=== PATIENT | female | born 1965 | race Caucasian/White ===

== ENCOUNTER 2017-11-12 16:06 | Outpatient (CLI) | payer OTHER | END 2017-11-12 16:07 | disposition home or self-care (01) | LOC: BICMAMMO 16:06 | PROVIDERS: ATTEND Obstetrics & Gynecology | DX: Z12.31 Encounter for screening mammogram for malignant neoplasm of breast (principal); Z80.3 Family history of malignant neoplasm of breast | CPT/HCPCS: 77063; 77067 ==

== ENCOUNTER 2018-11-18 15:36 | Outpatient (CLI) | payer OTHER ==
--- NOTE | 2018-12-07 15:52 | MMO ---
Bilateral MAMMO Bilat Screen [facility]. CLINICAL HISTORY: Patient is 53 years old and is seen for screening. The patient has the following family history of breast cancer: mother, at age 67; sister, at age 49; maternal aunt, at age 65 and maternal aunt, at age 65. The patient has no personal history of cancer. VIEWS: The views performed were: bilateral craniocaudal with tomosynthesis; bilateral mediolateral oblique with tomosynthesis; and left exaggerated craniocaudal. FILMS COMPARED: The present examination has been compared to prior imaging studies performed at [facility] on 11/06/2016 and 11/12/2017, and at [facility] on 09/03/2011, 09/19/2012, 09/29/2012, 10/16/2013, 12/12/2014, 12/17/2015 and 12/23/2015. MAMMOGRAM FINDINGS: The breasts are heterogeneously dense, which could obscure a lesion on mammography. Finding 1: There is a stable asymmetry seen in the inner region of the right breast. Finding 2: There are benign appearing calcifications seen in both breasts. There are no suspicious masses, suspicious calcifications, or new areas of architectural distortion. IMPRESSION: THERE IS NO MAMMOGRAPHIC EVIDENCE OF MALIGNANCY. A ROUTINE FOLLOW-UP MAMMOGRAM IN 1 YEAR IS RECOMMENDED. THE RESULTS OF THIS EXAM WERE SENT TO THE PATIENT. ACR BI-RADS Category 2 - Benign finding MAMMOGRAPHY NOTE: 1. A negative mammogram report should not delay a biopsy if a dominant of clinically suspicious mass is present. 2. Approximately 10% to 15% of breast cancers are not detected by mammography. 3. Adenosis and dense breasts may obscure an underlying neoplasm.
== END 2018-11-18 15:37 | disposition home or self-care (01) ==
LOC: BICMAMMO 15:36
PROVIDERS: ATTEND Obstetrics & Gynecology
DX: Z12.31 Encounter for screening mammogram for malignant neoplasm of breast (principal); Z80.3 Family history of malignant neoplasm of breast
CPT/HCPCS: 77063; 77067

== ENCOUNTER 2019-12-28 15:54 | Outpatient (CLI) | payer OTHER ==
--- NOTE | 2019-12-29 08:09 | MMO ---
Bilateral MAMMO Bilat Screen [facility]. CLINICAL HISTORY: Patient is 54 years old and is seen for screening. The patient has the following family history of breast cancer: mother, at age 67; sister, at age 49; maternal aunt, at age 65 and maternal aunt, at age 65. The patient has no personal history of cancer. VIEWS: The views performed were: bilateral craniocaudal with tomosynthesis and bilateral mediolateral oblique with tomosynthesis. FILMS COMPARED: The present examination has been compared to prior imaging studies performed at [facility] on 11/06/2016, 11/12/2017 and 11/18/2018. This study has been interpreted with the assistance of computer-aided detection. MAMMOGRAM FINDINGS: The breasts are heterogeneously dense, which could obscure a lesion on mammography. There are benign appearing calcifications seen in both breasts. There are no suspicious masses, suspicious calcifications, or new areas of architectural distortion. IMPRESSION: THERE IS NO MAMMOGRAPHIC EVIDENCE OF MALIGNANCY. A ROUTINE FOLLOW-UP MAMMOGRAM IN 1 YEAR IS RECOMMENDED. THE RESULTS OF THIS EXAM WERE SENT TO THE PATIENT. ACR BI-RADS Category 2 - Benign finding MAMMOGRAPHY NOTE: 1. A negative mammogram report should not delay a biopsy if a dominant of clinically suspicious mass is present. 2. Approximately 10% to 15% of breast cancers are not detected by mammography. 3. Adenosis and dense breasts may obscure an underlying neoplasm. Reported by: MICHAEL TOMLIN MD Electonically Signed: [id number]
== END 2019-12-28 15:55 | disposition home or self-care (01) ==
LOC: BICMAMMO 15:54
PROVIDERS: ATTEND Obstetrics & Gynecology
DX: Z12.31 Encounter for screening mammogram for malignant neoplasm of breast (principal); Z80.3 Family history of malignant neoplasm of breast
CPT/HCPCS: 77063; 77067

== ENCOUNTER 2020-11-15 18:03 | Outpatient (CLI) | payer BC ==
[2020-11-16 03:55] LABS: SARS-CoV-2 PCR by NAA Not Detected (NotDetected)
== END 2020-11-15 18:04 | disposition home or self-care (01) ==
LOC: LABBT 18:03
PROVIDERS: ATTEND Neurological Surgery
DX: M54.12 Radiculopathy, cervical region (principal); Z20.822 Contact with and (suspected) exposure to COVID-19
CPT/HCPCS: 87635; U0003; U0005

== ENCOUNTER 2020-11-20 05:49 | Day surgery (SDC) | payer BC ==
[2020-11-19 09:34] VITALS: BMI 25.7
[2020-11-20] MEDS ORDERED: Thrombin 5000 UNITS/5 ML VIAL ONE (06:09)
[2020-11-20] MEDS ORDERED: Fentanyl 100 MCG/2 ML VIAL ONE ×3 (06:34→08:57)
[2020-11-20] MEDS ORDERED: Midazolam HCl 2 mg/2 ml Vial ONE (06:40)
[2020-11-20] MEDS ORDERED: Scopolamine 1.5 mg/72 hour Patch ONE (06:40)
[2020-11-20] MEDS ORDERED: Famotidine/PF 20 mg/2ml Vial ONE (06:44)
[2020-11-20 06:52] LABS: Hemoglobin 13.1 g/dL (12.0-16.0); Mean Corpuscular Hemoglobin 31.3 pg (27.0-31.0); Platelet Count 221 thou/uL (130-400); RBC Distribution Width 12.4 % (11.5-14.5); Red Blood Cell (RBC) Count 4.17 mill/uL (4.20-5.40); White Blood Cell (WBC) Count 6.3 thou/uL (4.8-10.8)
[2020-11-20] MEDS ORDERED: PROPOFOL 200 MG/20 ML VIAL ONE (07:03)
[2020-11-20] MEDS ORDERED: ePHEDrine 50 MG/ML VIAL ONE (07:03)
[2020-11-20] MEDS ORDERED: Ondansetron PF 4 MG/2 ML Vial ONE (07:03)
[2020-11-20] MEDS ORDERED: Rocuronium Bromide 10 MG/ML (10ML VIAL) ONE (07:03)
[2020-11-20] MEDS ORDERED: Lidocaine 1% PF 5 ML VIAL ONE (07:03)
[2020-11-20] MEDS ORDERED: Metoclopramide HCl 10 MG/2 ML VIAL ONE (07:03)
[2020-11-20] MEDS ORDERED: Glycopyrrolate 0.2 MG/ML 5 ML SYRINGE ONE (07:03)
[2020-11-20] MEDS ORDERED: Dexamethasone 20 MG/5 ML VIAL ONE (07:03)
[2020-11-20] MEDS ORDERED: Ketorolac Tromethamine 30 MG/ML VIAL ONE (07:03)
[2020-11-20] MEDS ORDERED: Morphine 2 MG/ML VIAL ONE (09:29)
[2020-11-20] MEDS ORDERED: HYDROcodone/Acetaminophen 5/325 mg Tablet ONE (10:19)
== END 2020-11-20 12:00 | disposition home or self-care (01) ==
LOC: SDC 05:49
PROVIDERS: ATTEND Neurological Surgery
PROC: 0RT30ZZ Resection of Cervical Vertebral Disc, Open Approach (ICD-10-PCS; principal; 2020-11-20)
PROC: 0RG20A0 Fusion of 2 or more Cervical Vertebral Joints with Interbody Fusion Device, Anterior Approach, Anterior Column, Open Approach (ICD-10-PCS; principal; 2020-11-20)
DX: M54.12 Radiculopathy, cervical region (principal); M25.78 Osteophyte, vertebrae; Z79.899 Other long term (current) drug therapy; Z88.0 Allergy status to penicillin; Z88.1 Allergy status to other antibiotic agents; Z88.5 Allergy status to narcotic agent
CPT/HCPCS: 36415; 76000; 85027; C1713; C1776; J0690; J1100; J1885; J2250; J2270; J2405; J2704; J2765; J3010; J3490; S0028

== ENCOUNTER 2021-01-01 12:47 | Outpatient (CLI) | payer BC | END 2021-01-01 12:48 | disposition home or self-care (01) | LOC: TBSIIMAG 12:47 | PROVIDERS: ATTEND Neurological Surgery | DX: M47.26 Other spondylosis with radiculopathy, lumbar region (principal) | CPT/HCPCS: 72148 ==

== ENCOUNTER 2022-06-23 01:16 | Inpatient (IN) | payer BC ==
[2022-06-23 02:03] VITALS: BMI 25.6
[2022-06-23] MEDS ORDERED: Morphine 4 MG/ML VIAL SLOW IVP PRN (02:52)
[2022-06-23] MEDS ORDERED: Ondansetron PF 4 MG/2 ML Vial IVP PRN (02:53)
[2022-06-23] MEDS ORDERED: Acetaminophen 650 MG Suppository PR PRN (06:27)
[2022-06-23] MEDS ORDERED: Sodium Chloride 0.9% 1,000 ML IV SCH (06:30)
[2022-06-23] MEDS ORDERED: Ketorolac Tromethamine 30 MG/ML VIAL IVP SCH ×2 (06:30→11:15)
[2022-06-23 06:51] LABS: #Eosinphils 0.1 thou/uL (0.0-0.7); #Lymphocytes 2.4 thou/uL (1.20-3.40); #Monocytes 1.1 thou/uL (0.11-0.59); #Neutrophils 8.9 thou/uL (1.40-6.50); %Basophils 0.2 % (0.0-1.0); %Eosinophils 0.9 % (0.0-10.0); %Lymphocytes 19.4 % (21.0-51.0); %Monocytes 8.9 % (0.0-10.0); %Neutrophils 70.6 % (42.0-75.0); Hemoglobin 13.1 g/dL (12.0-16.0); Mean Corpuscular Hemoglobin 30.7 pg (27.0-31.0); Mean Corpuscular Volume 95.8 fl (78.0-98.0); Mean Platelet Volume 8.2 fL (7.4-10.4); Platelet Count 227 thou/uL (130-400); Red Blood Cell (RBC) Count 4.26 mill/uL (4.20-5.40); White Blood Cell (WBC) Count 12.6 thou/uL (4.8-10.8)
[2022-06-23 07:03] LABS: Anion Gap 13 mmol/L (10-20); BUN (Urea Nitrogen) 10 mg/dL (9.8-20.1); Calc. Creatinine Clearance 86 mL/min (70-130); Calcium 8.8 mg/dL (7.8-10.44); Carbon Dioxide 24 mmol/L (22-29); Chloride 107 mmol/L (98-107); Estimated GFR 83; Glucose 80 mg/dL (70-105); Potassium 3.8 mmol/L (3.5-5.1); Sodium 140 mmol/L (136-145)
[2022-06-23 07:55] LABS: Phosphorus 3.8 mg/dL (2.3-4.7)
[2022-06-23 07:56] LABS: Iron 25 ug/dL (50-170); Iron Binding Capacity, Total 188 mcg/dL (265-497)
[2022-06-23] MEDS: Pantoprazole 40 MG VIAL IVP SCH ×2 (08:18→19:58)
[2022-06-23] MEDS: D5 1/2 NS w/20 mEq KCL 1,000 ML IV SCH ×3 (08:18→23:47)
[2022-06-23] MEDS ORDERED: FLU VACC QS2022-23(6MOS UP)/PF 60 MCG/0.5 ML SYRINGE IM ONE (09:00)
[2022-06-23] MEDS: Ondansetron PF 4 MG/2 ML Vial IVP PRN ×2 (10:04→19:57)
[2022-06-23] MEDS: FENTANYL 50 MCG/ML VIAL 50 MCG/ML VIAL SLOW IVP PRN ×2 (13:47→19:57)
[2022-06-23] MEDS ORDERED: GoLYTELY 4,000 ml Bottle PO SCH (14:45)
[2022-06-23] MEDS: Acetaminophen 325 MG TAB PO PRN (15:25)
[2022-06-23] MEDS ORDERED: Mineral Oil ENEMA PR SCH (16:45)
[2022-06-23] MEDS ORDERED: Fioricet 325/50/40 mg Tablet PO PRN (16:47)
[2022-06-24] MEDS: D5 1/2 NS w/20 mEq KCL 1,000 ML IV SCH (01:13)
[2022-06-24] MEDS: FENTANYL 50 MCG/ML VIAL 50 MCG/ML VIAL SLOW IVP PRN (01:59)
[2022-06-24] MEDS: Ondansetron PF 4 MG/2 ML Vial IVP PRN ×3 (01:59→13:43)
[2022-06-24 06:52] LABS: #Eosinphils 0.2 thou/uL (0.0-0.7); #Lymphocytes 2.5 thou/uL (1.20-3.40); #Monocytes 0.9 thou/uL (0.11-0.59); #Neutrophils 6.5 thou/uL (1.40-6.50); %Basophils 0.3 % (0.0-1.0); %Eosinophils 2.4 % (0.0-10.0); %Lymphocytes 24.8 % (21.0-51.0); %Monocytes 9.1 % (0.0-10.0); %Neutrophils 63.5 % (42.0-75.0); Hemoglobin 12.6 g/dL (12.0-16.0); Mean Corpuscular HGB CONC 32.3 g/dL (32.0-36.0); Mean Corpuscular Volume 96.1 fl (78.0-98.0); Platelet Count 214 thou/uL (130-400); RBC Distribution Width 11.8 % (11.5-14.5); Red Blood Cell (RBC) Count 4.06 mill/uL (4.20-5.40); White Blood Cell (WBC) Count 10.2 thou/uL (4.8-10.8)
[2022-06-24] MEDS: Pantoprazole 40 MG VIAL IVP SCH ×2 (07:24→19:55)
[2022-06-24 07:27] LABS: Anion Gap 9 mmol/L (10-20); BUN (Urea Nitrogen) 7 mg/dL (9.8-20.1); Calc. Creatinine Clearance 94 mL/min (70-130); Calcium 8.5 mg/dL (7.8-10.44); Carbon Dioxide 26 mmol/L (22-29); Chloride 108 mmol/L (98-107); Estimated GFR 92; Glucose 101 mg/dL (70-105); Magnesium 1.8 mg/dL (1.6-2.6); Phosphorus 2.4 mg/dL (2.3-4.7); Sodium 139 mmol/L (136-145)
[2022-06-24] MEDS ORDERED: Dexamethasone 20 MG/5 ML VIAL ONE (09:39)
[2022-06-24] MEDS ORDERED: Ondansetron PF 4 MG/2 ML Vial ONE (09:39)
[2022-06-24] MEDS ORDERED: Ketorolac Tromethamine 30 MG/ML VIAL ONE (09:39)
[2022-06-24] MEDS ORDERED: PROPOFOL 200 MG/20 ML VIAL ONE (09:39)
[2022-06-24] MEDS ORDERED: Metoclopramide HCl 10 MG/2 ML VIAL ONE (09:39)
[2022-06-24] MEDS ORDERED: Succinylcholine 200 MG/10 ml SYRINGE FS ONE (09:39)
[2022-06-24] MEDS ORDERED: Promethazine HCl 25 MG/ML VIAL IVPB PRN (10:22)
[2022-06-24] MEDS ORDERED: Promethazine HCl 25 MG/ML VIAL IM PRN (10:22)
[2022-06-24] MEDS ORDERED: HYDROmorphone 2 MG/ML VIAL SLOW IVP PRN (10:22)
[2022-06-24] MEDS ORDERED: Ondansetron HCl/PF 4 MG/2 ML Vial IVP PRN (10:22)
[2022-06-24] MEDS: Lactated Ringer's 1,000 ML IV SCH ×3 (11:46→23:58)
[2022-06-24] MEDS ORDERED: GoLYTELY 4,000 ml Bottle PO SCH (12:00)
[2022-06-24] MEDS ORDERED: Loratadine 10 MG TAB PO SCH (15:15)
[2022-06-24] MEDS ORDERED: Aspirin/APAP/Caffeine Tab (Excedrin Migraine) PO PRN (19:22)
[2022-06-25 06:53] LABS: #Lymphocytes 2.1 thou/uL (1.20-3.40); #Monocytes 0.9 thou/uL (0.11-0.59); #Neutrophils 6.4 thou/uL (1.40-6.50); %Basophils 0.1 % (0.0-1.0); %Eosinophils 0.1 % (0.0-10.0); %Lymphocytes 22.3 % (21.0-51.0); %Monocytes 9.1 % (0.0-10.0); %Neutrophils 68.4 % (42.0-75.0); Mean Corpuscular HGB CONC 32.4 g/dL (32.0-36.0); Mean Corpuscular Hemoglobin 30.7 pg (27.0-31.0); Mean Corpuscular Volume 94.8 fl (78.0-98.0); Mean Platelet Volume 8.1 fL (7.4-10.4); Platelet Count 229 thou/uL (130-400); RBC Distribution Width 11.6 % (11.5-14.5); White Blood Cell (WBC) Count 9.4 thou/uL (4.8-10.8)
[2022-06-25 07:16] LABS: Anion Gap 11 mmol/L (10-20); BUN (Urea Nitrogen) 5 mg/dL (9.8-20.1); Calc. Creatinine Clearance 101 mL/min (70-130); Calcium 8.6 mg/dL (7.8-10.44); Carbon Dioxide 27 mmol/L (22-29); Chloride 107 mmol/L (98-107); Estimated GFR 100; Glucose 96 mg/dL (70-105); Potassium 3.9 mmol/L (3.5-5.1); Sodium 141 mmol/L (136-145)
[2022-06-25] MEDS ORDERED: Polyethylene Glycol 3350 17 GM Packet PO SCH (09:00)
[2022-06-25] MEDS ORDERED: Loratadine 10 MG TAB PO SCH (09:00)
[2022-06-25] MEDS: Acetaminophen 325 MG TAB PO PRN (09:02)
[2022-06-25] MEDS: Pantoprazole 40 MG VIAL IVP SCH (09:03)
[2022-06-25 14:48] VITALS: BP 132/87; TEMP 98.7
== END 2022-06-25 17:02 | disposition home or self-care (01) | DRG 389 ==
LOC: T4-A 01:16 → OBSVTOIN 11:44
PROVIDERS: ADMIT Student in an Organized Health Care Education/Training Program; ATTEND Internal Medicine
PROC: 0DBN8ZX Excision of Sigmoid Colon, Via Natural or Artificial Opening Endoscopic, Diagnostic (ICD-10-PCS; principal; 2022-06-24)
DX: K56.41 Fecal impaction (principal); K63.3 Ulcer of intestine; Z20.822 Contact with and (suspected) exposure to COVID-19; I10 Essential (primary) hypertension; F41.9 Anxiety disorder, unspecified; D64.9 Anemia, unspecified; Z88.5 Allergy status to narcotic agent; Z88.1 Allergy status to other antibiotic agents
CPT/HCPCS: 36415; 74018; 80048; 82378; 82728; 83540; 83550; 83735; 84100; 85025; 88305; C9113; J1100; J1885; J2270; J2405; J2704; J2765; J3480; U0003; U0005